=== PATIENT | male | born 1965 | race Caucasian/White ===

== ENCOUNTER → 2024-01-28 06:21 | Day surgery (SDC) | payer OTHER, SELFPAY | LOC: GI 06:21 | PROVIDERS: ATTENDING PHYSICIAN Internal Medicine Gastroenterology | DX: Z12.11 Encounter for screening for malignant neoplasm of colon (principal); K64.8 Other hemorrhoids; K62.1 Rectal polyp; K63.5 Polyp of colon | CPT/HCPCS: 45385; 88305; 88341; 88342 ==

== ENCOUNTER → 2025-01-14 11:42 | Outpatient (REF) | payer OTHER, SELFPAY | LOC: HWEVLT 11:42 | PROVIDERS: ATTENDING PHYSICIAN Radiology Vascular & Interventional Radiology | DX: I83.891 Varicose veins of right lower extremity with other complications (principal) | CPT/HCPCS: 93971 ==

== ENCOUNTER → 2025-04-15 12:33 | Outpatient (REF) | payer OTHER, SELFPAY | LOC: HWEVLT 12:33 | PROVIDERS: ATTENDING PHYSICIAN Radiology Vascular & Interventional Radiology | DX: I83.891 Varicose veins of right lower extremity with other complications (principal) | CPT/HCPCS: 36471 ==